=== PATIENT | female | born 2000 | race Caucasian/White ===

== ENCOUNTER 2021-05-11 10:05 | Inpatient (IN) | payer MEDICAID ==
[~2021-05-11] VITALS: Ht 170.2 cm; Wt 72.6 kg
[2021-05-11 11:39] LABS: HEMOGLOBIN 11.9 gm/dl (12.3-15.3); RED BLOOD COUNT 3.5 M/UL (4.00-5.10); WHITE BLOOD COUNT 12.5 K/UL (4.5-11.0)
[2021-05-11 12:13] LABS: BUN/CREATININE RATIO 6 (0-10)
[2021-05-11] MEDS ORDERED: PRENATAL COMPL1 EACH PO (16:24)
[2021-05-11] MEDS ORDERED: TYLENOL EXTRA500 MG PO (16:25)
[2021-05-12 06:26] LABS: HEMOGLOBIN 11.1 gm/dl (12.3-15.3); RED BLOOD COUNT 3.25 M/UL (4.00-5.10)
[2021-05-12 07:00] LABS: WHITE BLOOD COUNT 8.3 K/UL (4.5-11.0)
[2021-05-13] MEDS ORDERED: BACTRIM DS TAB1 EACH PO (20:48)
== END 2021-05-13 21:51 | disposition home or self-care (01) | DRG 833 ==
LOC: ER1 10:05 → CDU 14:42 → M/S 14:42
PROVIDERS: Physician Assistant; ADMIT Obstetrics & Gynecology
PROC: 4A1HXCZ Monitoring of Products of Conception, Cardiac Rate, External Approach (ICD-10-PCS; principal; 2021-05-11)
DX: O23.01 Infections of kidney in pregnancy, first trimester (principal); Z3A.16 16 weeks gestation of pregnancy; Z20.822 Contact with and (suspected) exposure to COVID-19; Z87.891 Personal history of nicotine dependence
CPT/HCPCS: 36415; 80053; 81001; 83605; 85025; 87040; 87077; 87086; 87186; 96374; 99284; J0696; J7030; U0002

== ENCOUNTER 2021-10-18 20:28 | Outpatient (CLI) | payer OTHER ==
[~2021-10-18 20:28] MED LIST: BACTRIM DS TAB1 EACH PO; PRENATAL COMPL1 EACH PO; TYLENOL EXTRA500 MG PO
== END 2021-10-18 22:04 | disposition home or self-care (01) ==
LOC: GENOP 20:28
DX: O46.93 Antepartum hemorrhage, unspecified, third trimester (principal); O99.333 Smoking (tobacco) complicating pregnancy, third trimester; F17.210 Nicotine dependence, cigarettes, uncomplicated; Z3A.39 39 weeks gestation of pregnancy
CPT/HCPCS: 59025

== ENCOUNTER 2021-10-24 16:53 | Inpatient (IN) | payer OTHER ==
[~2021-10-24] VITALS: Ht 170.2 cm; Wt 97.1 kg
[2021-10-24 19:01] LABS: HEMOGLOBIN 11.5 gm/dl (12.3-15.3); RED BLOOD COUNT 3.68 M/UL (4.00-5.10); WHITE BLOOD COUNT 12.6 K/UL (4.5-11.0)
[2021-10-26 06:42] LABS: HEMOGLOBIN 11.5 gm/dl (12.3-15.3)
[2021-10-26] MEDS ORDERED: DOCUSATE SODIU100 MG PO (07:58)
[2021-10-26] MEDS ORDERED: IBUPROFEN600 MG PO (07:58)
== END 2021-10-26 17:35 | disposition home or self-care (01) | DRG 807 ==
LOC: GENOP 16:53 → OB 17:39
PROVIDERS: ADMIT Obstetrics & Gynecology
PROC: 4A1HXCZ Monitoring of Products of Conception, Cardiac Rate, External Approach (ICD-10-PCS; 2021-10-24)
PROC: 10E0XZZ Delivery of Products of Conception, External Approach (ICD-10-PCS; principal; 2021-10-25)
PROC: 0HQ9XZZ Repair Perineum Skin, External Approach (ICD-10-PCS; 2021-10-25)
PROC: 3E033VJ Introduction of Other Hormone into Peripheral Vein, Percutaneous Approach (ICD-10-PCS; 2021-10-25)
PROC: 3E0234Z Introduction of Serum, Toxoid and Vaccine into Muscle, Percutaneous Approach (ICD-10-PCS; 2021-10-25)
DX: O32.1XX0 Maternal care for breech presentation, not applicable or unspecified (principal); Z37.0 Single live birth; Z3A.39 39 weeks gestation of pregnancy; Z20.822 Contact with and (suspected) exposure to COVID-19; O99.334 Smoking (tobacco) complicating childbirth; F17.210 Nicotine dependence, cigarettes, uncomplicated; O70.0 First degree perineal laceration during delivery; Z23 Encounter for immunization
CPT/HCPCS: 36415; 81001; 82800; 85014; 85018; 85025; 90686; 90715; J2590; J7120